=== PATIENT | male | born 1995 | race Two or more races ===

== ENCOUNTER 2019-02-25 08:25 | Day surgery (SDC) | payer BC ==
[~2019-02-25 08:25] MED LIST: ASPI325 PO; CODACEE120 PO; CRUTCH USE; HYDR1TAB94 PO
--- NOTE | 2019-02-25 09:06 | NUR ---
Ambulatory in Day Surgery History, Chart, Medications and Allergies reviewed before start of procedure. Lungs clear T/O to Auscultation. Patient confirms NPO status and agrees with scheduled surgery. Pre-Op teaching done. Pt verbalizes understanding. Patient States Post-Procedure ride home has been arranged.
--- NOTE | 2019-02-25 11:58 | NUR ---
PT TO STEP. DROWSY, WAKES TO VOICE. DENIES PAIN OR NAUSEA. DRESSING D/I. ABD BINDER IN PLACE. REFUSES DRINK AT PRESENT TIME.
--- NOTE | 2019-02-25 12:08 | NUR ---
ICE PACK PLACED ON SURGICAL SITE.
--- NOTE | 2019-02-25 12:29 | NUR ---
NO CHANGE IN DRESSING SITE. PT REMAINS DROWSY BUT WAKES EASILY. STATES HE WOULD LIKE TO GO HOME.
--- NOTE | 2019-02-25 13:06 | NUR ---
WRITTEN AND VERBAL D/C INSTRUCTIONS GIVEN TO PT AND MOTHER WITH STATED UNDERSTANDING.
== END 2019-02-25 23:12 | disposition home or self-care (01) ==
LOC: ORSCMMR 08:25 → ORD 09:00 → ORSCMMR 10:00 → ORD 10:00 → ORSCMMR 23:12
PROVIDERS: Surgery
PROC: 0WQF0ZZ Repair Abdominal Wall, Open Approach (ICD-10-PCS; principal; 2019-02-25 10:00)
DX: K42.0 Umbilical hernia with obstruction, without gangrene (principal)
CPT/HCPCS: J0690; J1100; J1200; J1885; J2250; J2405; J2704; J3010; J7120